=== PATIENT | female | born 1980 | race African-American/Black ===

== ENCOUNTER 2023-02-28 12:11 | Emergency (ER) | payer OTHER ==
[~2023-02-28] VITALS: Ht 180.3 cm; Wt 103.4 kg
[2023-02-28] MEDS ORDERED: ALBUTEROL SULFATE/IPRATROPIU 3 ML SOL IH ONE (12:20)
[2023-02-28 12:36] VITALS: BP 156/73; PULSE 70; RESP 16; TEMP 97.6; O2SAT 99
[2023-02-28] MEDS ORDERED: ALBU0.0912 INH (13:16)
[2023-02-28] MEDS ORDERED: ROB PO (13:16)
[2023-02-28 13:17] LABS: FLU A ANTIGEN negative (NEGATIVE); FLU B ANTIGEN NEGATIVE (NEGATIVE)
[2023-02-28 13:23] VITALS: BP 156/73; PULSE 70; RESP 16; TEMP 97.6; O2SAT 99
== END 2023-02-28 13:23 | disposition home or self-care (01) ==
LOC: MED 12:11
DX: J20.9 Acute bronchitis, unspecified (principal); Z20.822 Contact with and (suspected) exposure to COVID-19; J45.909 Unspecified asthma, uncomplicated; Z88.0 Allergy status to penicillin; Z79.899 Other long term (current) drug therapy
CPT/HCPCS: 87081; 94640; 99283